=== PATIENT | male | born 1995 | race Caucasian/White ===

== ENCOUNTER 2021-11-11 15:22 | Emergency (ER) | payer SELFPAY ==
[~2021-11-11] VITALS: Ht 185.4 cm; Wt 125.4 kg
[2021-11-11 15:22] VITALS: BP 138/83
== END 2021-11-11 22:23 | disposition left against medical advice (07) ==
LOC: M ED 15:22 → EDBD 15:22 → M ED 22:23
DX: Z53.21 Procedure and treatment not carried out due to patient leaving prior to being seen by health care provider (principal)

== ENCOUNTER 2022-11-26 09:24 | Emergency (ER) | payer OTHER, SELFPAY ==
[~2022-11-26] VITALS: Ht 185.4 cm; Wt 125.0 kg
[2022-11-26 12:00] LABS: RSV AMPLIFICATION NEGATIVE (NEGATIVE)
[2022-11-26] MEDS ORDERED: DOXY100C82 PO (12:09)
[2022-11-26 12:22] VITALS: BP 134/77; TEMP 98.7; O2SAT 97
== END 2022-11-26 12:34 | disposition home or self-care (01) ==
LOC: M ED 09:24
DX: J18.1 Lobar pneumonia, unspecified organism (principal); F17.200 Nicotine dependence, unspecified, uncomplicated; F10.10 Alcohol abuse, uncomplicated; Z79.899 Other long term (current) drug therapy